=== PATIENT | female | born 1945 | race Caucasian/White ===

== ENCOUNTER 2018-10-01 01:38 | Outpatient (CLI) | payer MEDICARE, BC ==
[2018-10-01 15:54] LABS: #Eosinphils 0.2 thou/uL (0.0-0.7); #Lymphocytes 1.9 thou/uL (1.20-3.40); #Monocytes 0.3 thou/uL (0.11-0.59); #Neutrophils 3.5 thou/uL (1.40-6.50); %Basophils 0.7 % (0.0-1.0); %Eosinophils 3.1 % (0.0-10.0); %Lymphocytes 31.7 % (21.0-51.0); %Monocytes 5.8 % (0.0-10.0); %Neutrophils 58.8 % (42.0-75.0); Mean Corpuscular Hemoglobin 33.2 pg (27.0-31.0); Mean Corpuscular Volume 97.7 fL (78.0-98.0); Mean Platelet Volume 7.9 fL (7.4-10.4); Platelet Count 212 thou/uL (130-400); RBC Distribution Width 11.5 % (11.5-14.5); Red Blood Cell (RBC) Count 3.92 mill/uL (4.20-5.40); White Blood Cell (WBC) Count 5.9 thou/uL (4.8-10.8)
[2018-10-01 16:17] LABS: Anion Gap 15 mmol/L (10-20); BUN (Urea Nitrogen) 10 mg/dL (9.8-20.1); Calc. Creatinine Clearance 0 mL/min (70-130); Calcium 9.5 mg/dL (7.8-10.44); Carbon Dioxide 21 mmol/L (23-31); Chloride 108 mmol/L (98-107); Estimated GFR-MDRD 83; Glucose 98 mg/dL (83-110); Potassium 4.3 mmol/L (3.5-5.1); Sodium 140 mmol/L (136-145)
--- NOTE | 2018-10-03 09:16 | EKG ---
Test Reason : Blood Pressure : / mmHG Vent. Rate : 071 BPM Atrial Rate : 071 BPM P-R Int : 160 ms QRS Dur : 088 ms QT Int : 412 ms P-R-T Axes : 053 -11 044 degrees QTc Int : 447 ms Normal sinus rhythm Cannot rule out Anterior infarct , age undetermined Abnormal ECG No previous ECGs available Confirmed by TOM LILLY, DR. Kramer ([id number]) on 10/03/2018 9:16:26 AM Referred By: SHERRIE Confirmed By:DR. Nia SANTOS MD
== END 2018-10-01 01:39 | disposition home or self-care (01) ==
LOC: LABBT 01:38
PROVIDERS: ATTEND Orthopaedic Surgery
DX: Z01.818 Encounter for other preprocedural examination (principal); G56.22 Lesion of ulnar nerve, left upper limb
CPT/HCPCS: 80048; 85025; 93005; 93010

== ENCOUNTER → 2018-10-07 | Day surgery (SDC) | payer MEDICARE, BC ==
[2018-10-05 13:00] VITALS: BMI 27.9
--- NOTE | 2018-10-06 09:10 | HP ---
HISTORY OF PRESENT ILLNESS: The patient is a 73-year-old right-handed female with a greater than 1 month history of progressive pain and numbness in ulnar distribution of her left arm with pain in her left elbow. She thinks the symptoms may have developed after leaning on her elbow. No specific injury. She has had progressive symptoms despite rest, restriction of activities, and use of ibuprofen. She has noticed pain and weakness in her hand, and progressive numbness. PAST SURGERY HISTORY: The patient has had a previous hip replacement, cholecystectomy, and hernia surgery. She has no other major medical problems. ALLERGIES: SHE IS ALLERGIC TO PEANUTS AND CATS. SHE HAS NO MEDICAL ALLERGIES. FAMILY HISTORY: Otherwise unremarkable. SOCIAL HISTORY: Otherwise unremarkable. REVIEW OF SYSTEMS: Otherwise unremarkable. PHYSICAL EXAMINATION: GENERAL: Reveals a healthy female. HEENT: Unremarkable. NECK: Supple. CHEST: Clear. HEART: Regular rate and rhythm. ABDOMEN: Soft, nontender. PELVIC: Deferred. RECTAL: Deferred. BREASTS: Deferred. EXTREMITIES: In left upper extremity, there is tenderness over the ulnar nerve at the elbow over the cubital tunnel. There is a positive Tinel sign. There is weakness of the ulnar intrinsic muscles of the left hand and decreased sensation in ulnar nerve distribution. NEUROVASCULAR: Otherwise intact. Good distal pulses. Full range of motion of the all fingers. IMPRESSION: Left cubital tunnel syndrome. PLAN: Cubital tunnel release with medial epicondylectomy. The nature of the surgery, length of recovery, and potential complications such as infection, loss of motion, incomplete relief, nerve injury, recurrence, and need for additional treatment and repeat surgery were discussed in detail with the patient and her daughter. Job ID: [id number] [facility]
[~2018-10-07] MED LIST: Bupivacaine HCl 0.5%/Epinephrine 1:200,000/PF 30 ml Vial ONE; Fentanyl 100 MCG/2 ML VIAL ONE
--- NOTE | 2018-10-07 13:45 | OP ---
DATE OF PROCEDURE: 10/07/2018 ANESTHESIA: General. PREOPERATIVE DIAGNOSIS: Left cubital tunnel syndrome. POSTOPERATIVE DIAGNOSIS: Left cubital tunnel syndrome. PROCEDURE PERFORMED: Left cubital tunnel release with medial epicondylectomy. DESCRIPTION OF PROCEDURE: After satisfactory anesthesia was induced in supine position, the patient was prepped and draped in routine manner. The left arm was elevated and exsanguinated with an Esmarch bandage and the tourniquet inflated to 250 mmHg. A longitudinal incision was centered over the medial epicondyle was made, carried down to the superficial subcutaneous tissue. The skin and superficial subcutaneous tissues were infiltrated with 10 mL of 0.5% Marcaine with epinephrine. The dissection was carried down deeper with sharp and blunt dissection down to the medial epicondyle. Using sharp and blunt dissection, the ulnar nerve was identified and the cubital tunnel totally released. The nerve was gently freed up from the intermuscular septum proximally to the interval between the 2 heads of flexor carpi ulnaris distally. No attempt was made to skeletonize the nerve. The small vessels near the nerve were cauterized with the bipolar cautery. The nerve was gently retracted, then put posteriorly with a Belen drain and held safely out of the way. The medial epicondyle was then subperiosteally exposed and then excised with an osteotome, flushed with the shaft of the humerus. It was then smoothed with a rasp. The wound was then thoroughly irrigated. The deep fascia over the medial condyle area was then closed with #1 Vicryl. At 90 degrees, the nerve was allowed to fall forward and was thought to be free and mobile. There did appear to be moderate constriction of the nerve within the cubital tunnel prior to release. The subcutaneous tissues were then closed with interrupted 2-0 Vicryl and the skin closed with a running 3-0 V-Loc and Surgicel skin adhesive. A sterile dressing was applied and the tourniquet released after 51 minutes. The hand promptly pinked up, and the patient was then immobilized in a long-arm plaster splint and arm sling. She was taken to recovery room in stable condition. There were no apparent intraoperative complications. ESTIMATED BLOOD LOSS: Negligible. The patient will be discharged home in satisfactory condition. Started on ice and elevation, given written cast care instructions. She was given a prescription for [place] 5 for pain, 60 tablets. She will be rechecked in my office in 7 to 10 days or sooner if there are any problems prior to that time. Job ID: [id number]
== END ==
LOC: SDC 06:51
PROVIDERS: ATTEND Orthopaedic Surgery
PROC: 01N40ZZ Release Ulnar Nerve, Open Approach (ICD-10-PCS; principal; 2018-10-07)
PROC: 0PBG0ZZ Excision of Left Humeral Shaft, Open Approach (ICD-10-PCS; 2018-10-07)
DX: G56.22 Lesion of ulnar nerve, left upper limb (principal); Z91.010 Allergy to peanuts; Z91.048 Other nonmedicinal substance allergy status
CPT/HCPCS: J0670; J0690; J3010